=== PATIENT | male | born 1945 | race Caucasian/White ===

== ENCOUNTER 2023-07-08 20:47 | Emergency (ER) | payer MEDICARE ==
[~2023-07-08] VITALS: Ht 175.3 cm; Wt 82.0 kg
[2023-07-08 22:00] VITALS: TEMP 98.4
[2023-07-08 23:36] VITALS: BP 140/80; PULSE 78; RESP 18
== END 2023-07-09 05:30 | disposition home or self-care (01) ==
LOC: EMS 21:18
DX: R33.9 Retention of urine, unspecified (principal); Z46.6 Encounter for fitting and adjustment of urinary device; Z87.891 Personal history of nicotine dependence; Z98.890 Other specified postprocedural states
CPT/HCPCS: 99283; Z7502